=== PATIENT | female | born 2000 | race Caucasian/White ===

== ENCOUNTER 2022-05-10 14:26 | Outpatient (CLI) | payer OTHER, SELFPAY ==
[2022-05-10 15:58] LABS: Basophils Absolute Auto 0.04 K/uL (0.00-0.30); Basophils Percent Auto 0.6 % (0.0-3.0); Eosinophils Absolute Auto 0.07 K/uL (0.00-0.50); Eosinophils Percent Auto 1.1 % (0.0-7.0); Hematocrit 39.3 % (33.0-51.0); Hemoglobin* 13.4 gm/dL (12.0-16.0); Lymphocytes Absolute Auto 1.98 K/uL (0.90-2.90); Lymphocytes Percent Auto 29.9 % (20-44); Mean Corpuscular HGB Conc 34 gm/dL (32-36); Mean Corpuscular Hemoglobin 27 pg (26-34); Mean Corpuscular Volume 80 fL (80-100); Monocytes Percent Auto 7.4 % (0.0-11.0); Neutrophils Absolute Auto 4.04 K/uL (1.7-7.0); Platelet Count* 300 K/uL (140-440); RDW Coefficient of Variation % 12.2 % (11.5-15.5); Red Blood Count 4.93 m/uL (4.00-5.20); White Blood Count* 6.62 K/uL (4.50-11.00)
[2022-05-10 16:01] LABS: Appearance Urine Clear (Clear); Bilirubin Urine Negative (Negative); Blood Urine 3+ (Negative); Color Urine Yellow (Yellow); Glucose Urine Negative (Negative); Ketones Urine Trace (Negative); Leukocyte Esterase Urine Negative (Negative); Nitrite Urine Negative (Negative); Protein Urine 2+ (Negative); Specific Gravity Urine 1.025 (1.000-1.030); Urobilinogen Urine 0.2 (0.2-1.0); pH Urine 6.5 (5.0-8.5)
[2022-05-10 16:21] LABS: Chloride* 105 mmol/L (96-114)
[2022-05-10 16:22] LABS: Albumin* 4.8 g/dL (3.3-5.0); Slide Review Reflex No; Sodium* 141 mmol/L (135-149)
[2022-05-10 16:23] LABS: Potassium* 3.8 mmol/L (3.6-5.1)
[2022-05-10 16:25] LABS: Alanine Aminotransferase* 19 U/L (4-35); Alkaline Phosphatase* 88 U/L (40-150); Aspartate Amino Transferase* 28 U/L (12-35); Bilirubin Total* 0.4 mg/dL (0.1-1.5); Blood Urea Nitrogen* 17 mg/dL (5-24); Carbon Dioxide* 23 mmol/L (20-32); Cholesterol* 254 mg/dL (90-199); Creatinine* 0.6 mg/dL (0.5-1.5); Estimated Glomerular Filt Rate 131 ml/min; Glucose* 116 mg/dL (60-115); Triglycerides* 249 mg/dL (40-149)
[2022-05-10 16:26] LABS: Calcium* 9.7 mg/dL (8.4-10.6); HDL Cholesterol* 53 mg/dL (>=50); LDL Cholesterol Calculated 151 mg/dL (<100)
[2022-05-10 16:27] LABS: Creatinine Urine 143.3 mg/dL
[2022-05-10 16:53] LABS: Microalbumin Creatinine Ratio 150 mg/g (0-30); Microalbumin Urine 22 mg/dL
[2022-05-10 18:47] LABS: Bacteria Urine Few; Squamous Epithelial Cell Urine Few (None-Few); WBC Urine 0-2 (0-5)
== END 2022-05-10 14:27 | disposition home or self-care (01) ==
PROVIDERS: Visit Provider Pediatrics Pediatric Nephrology
DX: Q85.1 Tuberous sclerosis (principal); N18.1 Chronic kidney disease, stage 1; Q61.02 Congenital multiple renal cysts
CPT/HCPCS: 36415; 80053; 80061; 81001; 82043; 82570; 85025; 87086

== ENCOUNTER 2022-05-21 05:14 | Emergency (ER) | payer OTHER, SELFPAY ==
[2022-05-21] VITALS (13 sets, daily range): BP systolic 84–145; BP diastolic 40–84; PULSE 39–90; RESP 14–18; TEMP 36.6; O2SAT 92–100; BMI 22.6
[2022-05-21 05:32] LABS: Appearance Urine Clear (Clear); Bilirubin Urine Negative (Negative); Blood Urine Negative (Negative); Color Urine Yellow (Yellow); Glucose Urine Negative (Negative); Ketones Urine Negative (Negative); Leukocyte Esterase Urine Negative (Negative); Nitrite Urine Negative (Negative); Protein Urine Negative (Negative); Specific Gravity Urine <= 1.005 (1.000-1.030); Urobilinogen Urine 0.2 (0.2-1.0); pH Urine 6.5 (5.0-8.5)
[2022-05-21 05:40] LABS: Bacteria Urine Moderate; RBC Urine 0-2 (0-2); Squamous Epithelial Cell Urine Few (None-Few); WBC Urine 0-2 (0-5)
[2022-05-21 05:41] LABS: HCG Qualitative* Negative (Negative)
--- NOTE | 2022-05-21 05:52 | CRLHL7_ITS ---
For Patients: As a result of the 21st Century Cures Act, medical imaging exams and procedure reports are released immediately into your electronic medical record. You may view this report before your referring provider. If you have questions, please contact your health care provider. INDICATION: Left-sided abdominal pain. History of tuberous sclerosis. TECHNIQUE: Axial images were obtained from the diaphragm to the pubic symphysis. Reformats were obtained in the coronal and sagittal plane. IV Contrast: None Oral Contrast: None COMPARISON: None. FINDINGS: Lower chest: Calcified granulomata within the lingula. Liver: Punctate calcification within liver consistent prior granulomatous disease. Subcentimeter fat density within the right lobe of the liver, likely a hepatic angiomyolipoma in this setting. Other subcentimeter hypodense lesions which are too small for characterization. Gallbladder and bile ducts: Unremarkable. No stones or inflammation. No biliary dilatation. Spleen: Numerous calcifications consistent with prior granulomatous disease. Pancreas: Unremarkable. No mass or inflammation. Adrenal glands: Unremarkable. No nodules. Kidneys: Kidneys are enlarged with numerous low-density, high density as well as fat density lesions. Largest angiomyolipoma on the left measures 4.0 centimeters. No hydronephrosis. Vasculature: Unremarkable. GI tract: No dilated loops of large or small intestine. Calcifications of the adalberto-hepatis, likely calcified lymph nodes. There are some mildly prominent vessels with faint fascial thickening along the left flank (series 2, image 51; series 4, image 19). Pelvis: Trace free fluid deep pelvis. Bones: Small sclerotic foci within the lumbar spine and pelvis. IMPRESSION: 1. Bilateral renal enlargement with numerous angiomyolipomas, largest measuring 4.0 centimeters. Multiple renal cysts as well as subcentimeter hyperdense renal lesions which can represent proteinaceous cysts or small solid lesions. No hydronephrosis. 2. Prominent vessels along the left flank with some faint fascial thickening. Subjectively this is likely physiologic for this patient although minimal mesenteritis is possible. 3. Numerous sclerotic lesions throughout the lumbar spine and pelvis, likely multiple bone islands. 4. Fat-density hepatic lesion consistent with an angiomyolipoma. 5. Old granulomatous disease. Please note that all CT scans at this facility use dose modulation, iterative reconstruction, and/or weight-based dosing when appropriate to reduce radiation dose to as low as reasonably achievable. Dictated by Chao Jones MD @ 05/21/2022 7:15:33 AM (Electronically Signed)
--- NOTE | 2022-05-21 06:05 | ED.NURSE ---
pt vasovagal post IV start, Trendelenburg position and pt responded back, pt states she faints during iv starts frequently, pt MD Gentile updated.
[2022-05-21 06:15] LABS: Basophils Percent Auto 0.5 % (0.0-3.0); Eosinophils Percent Auto 2.2 % (0.0-7.0); Hematocrit 40.3 % (33.0-51.0); Hemoglobin* 13.6 gm/dL (12.0-16.0); Immature Granulocytes Abs Auto 0.05 K/uL (0.00-0.30); Lymphocytes Percent Auto 21.4 % (20-44); Mean Corpuscular HGB Conc 34 gm/dL (32-36); Mean Corpuscular Hemoglobin 27 pg (26-34); Mean Corpuscular Volume 80 fL (80-100); Monocytes Percent Auto 6.4 % (0.0-11.0); Neutrophils Percent Auto 69.1 % (42.0-72.0); Platelet Count* 358 K/uL (140-440); RDW Coefficient of Variation % 12.4 % (11.5-15.5); Red Blood Count 5.01 m/uL (4.00-5.20); White Blood Count* 11.49 K/uL (4.50-11.00)
[2022-05-21 06:19] LABS: Albumin* 4.9 g/dL (3.3-5.0); Chloride* 106 mmol/L (96-114); Slide Review Reflex No
[2022-05-21 06:20] LABS: Potassium* 3.9 mmol/L (3.6-5.1); Sodium* 140 mmol/L (135-149)
[2022-05-21 06:22] LABS: Alkaline Phosphatase* 90 U/L (40-150); Amylase* 76 U/L (18-89); Aspartate Amino Transferase* 36 U/L (12-35); Bilirubin Total* 0.4 mg/dL (0.1-1.5); Blood Urea Nitrogen* 11 mg/dL (5-24); Carbon Dioxide* 25 mmol/L (20-32); Creatinine* 0.6 mg/dL (0.5-1.5); Est. Creatinine Clearance* 138.85; Estimated Glomerular Filt Rate 131 ml/min; Glucose* 101 mg/dL (60-115); Total Protein* 8.5 g/dL (6.0-8.3)
[2022-05-21 06:23] LABS: Alanine Aminotransferase* 28 U/L (4-35); Calcium* 10.1 mg/dL (8.4-10.6); Lipase* 56 U/L (23-300)
--- NOTE | 2022-05-21 06:24 | ED.NURSE ---
pt. blood pressure was 88/40. heart rate 54. pt. with no c/o, except she wanted her iv out.
--- NOTE | 2022-05-21 06:43 | ED_ITS ---
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 No reflux symptoms no fever or chills. No dysuria. No nausea or vomiting. The pain seems to extend into her back. She has a number of kidney cysts related to her tuberous sclerosis and has had abd pain as a symptom in the past. No other symptoms. Pt has been eating and drinking normally. Pain is moderate and sharp. Pt is not sexually active. Related Data Home Medications Medication Instructions Recorded Confirmed everolimus (antineoplastic) 5 mg 5 mg PO DAILY 05/21/22 05/21/22 tablet Previous Rx's Medication Instructions Recorded ciprofloxacin HCl 250 mg tablet 250 mg PO Q12H #10 tabs 05/21/22 (Cipro) Allergies Allergy/AdvReac Type Severity Reaction Status Date / Time NSAIDS (Non-Steroidal Allergy Intermediate h/o Verified 05/21/22 06:13 Anti-Inflamma Tuberous Sclerosis Iodinated Contrast Media AdvReac Severe Tuberous Verified 05/21/22 06:13 Sclerosis Review of Systems Status of ROS Reports: 10 or more systems reviewed and unremarkable except as noted in History and below [facility] Medical History (Updated 05/21/22 @ 07:27 by Guillermo Gentile MD) Tuberous sclerosis Surgical History No significant past surgical history Social History Smoking Status: Never smoker Do you use any of these nicotine containing products: None Second hand tobacco smoke exposure: No How often do you have a drink containing alcohol: never How often do you have six or more drinks on one occasion: Never AUDIT-C Alcohol total score: 0 Non-prescribed substance use: denies use Exam Narrative: Exam Narrative: EXAM GENERAL: Patient appears comfortable and well. EYES: No scleral icterus. THYROID: no thyroid nodules or thyromegaly. LYMPH: No supraclavicular or cervical lymphadenopathy. SKIN: Visible skin seen during exam normal or with benign process only. EXT: No dependent lower extremity pedal edema. HEART: Regular rate and rhythm with no murmurs, rubs, or gallops. LUNGS: Clear to auscultation bilaterally with no crackles or wheezes. ABD: Soft, non tender, non distended. PSYCH: Good eye contact, speech is not pressured. Const: Vital Signs, click to edit/add: Vital Signs - 24 hr 05/21/22 05:27 05/21/22 06:00 05/21/22 06:04 Temperature 97.9 F Pulse Rate Pulse Rate [Right Pulse Oximeter] 90 39 L Respiratory Rate 18 14 Blood Pressure Blood Pressure [Ri ght Upper Arm] 145/84 H 88/50 L Pulse Oximetry 99 98 92 Oxygen Delivery Me thod Room Air Room Air 05/21/22 06:09 05/21/22 06:11 05/21/22 06:15 Temperature Pulse Rate 58 L 69 Pulse Rate [Right Pulse Oximeter] 61 Respiratory Rate 14 Blood Pressure 115/74 Blood Pressure [Ri ght Upper Arm] 115/74 Pulse Oximetry 99 99 100 Oxygen Delivery Me thod Room Air 05/21/22 06:17 05/21/22 06:20 05/21/22 06:22 Temperature Pulse Rate 77 56 L 56 L Pulse Rate [Right Pulse Oximeter] Respiratory Rate Blood Pressure 116/52 L 84/40 L Blood Pressure [Ri ght Upper Arm] Pulse Oximetry 98 100 99 Oxygen Delivery Me thod 05/21/22 06:34 05/21/22 07:02 Temperature Pulse Rate 71 79 Pulse Rate [Right Pulse Oximeter] Respiratory Rate Blood Pressure 120/65 112/69 Blood Pressure [Ri ght Upper Arm] Pulse Oximetry 100 100 Oxygen Delivery Me thod Course Course Hospital Course: CBC, CMP, Lipase, Amylase, Ua, urine preg, CT of abd and pelvis ordered. Reevaluation(s) Reevaluation #1: Pt became hypotensive and bradycardic when IV was being placed. Pt given 500 Normal Saline bolus and now feels better. Time: 06:55 Vital Signs Vital signs: Initial Vital Signs Temperature 97.9 F 05/21/22 05:27 Temperature Source Temporal Artery Scan 05/21/22 05:27 Pulse Rate 90 05/21/22 05:27 Respiratory Rate 18 05/21/22 05:27 Blood Pressure 145/84 H 05/21/22 05:27 Blood Pressure Mean 104 05/21/22 05:27 Blood Pressure Position Sitting 05/21/22 05:27 Pulse Oximetry 99 05/21/22 05:27 Oxygen Delivery Method 05/21/22 05:27 Vital Signs Temperature 97.9 F 05/21/22 05:27 Pulse Rate 90 05/21/22 05:27 Respiratory Rate 18 05/21/22 05:27 Blood Pressure 145/84 H 05/21/22 05:27 Pulse Oximetry 99 05/21/22 05:27 Oxygen Delivery Method 05/21/22 05:27 Temperature 97.9 F 05/21/22 05:27 Pulse Rate 79 05/21/22 07:02 Respiratory Rate 14 05/21/22 06:09 Blood Pressure 112/69 05/21/22 07:02 Pulse Oximetry 100 05/21/22 07:02 Oxygen Delivery Method 05/21/22 06:09 MDM - Abdominal Pain MDM Narrative Medical decision making narrative: Pt is a 21 year old with tuberous sclerosis who presents with abd pain. Workup shows chronic findings of tuberous sclerosis on CT. Lab shows moderate bacteria on ua. No other findings. Pt had a syncopal event with the IV start with normalization after 500 cc of normal saline. We did discuss treatment of her urine bacteria given her complex urinary anatomy. Pt is agreable to antibiotic being sent in but she will discuss with her Supervisor [employer] before starting. Differential Diagnosis Differential diagnosis: Likely abdominal pain, acute appendicitis, calculus of kidney, constipation, diverticulitis, endometriosis, gastroenteritis, pancreatitis and small bowel obstruction Lab Data Labs: Lab Results 05/21/22 05/21/22 05/21/22 Range/Units 05:25 06:00 06:00 WBC 11.49 H (4.50-11.00) K/uL RBC 5.01 (4.00-5.20) m/uL Hgb 13.6 (12.0-16.0) gm/dL Hct 40.3 (33.0-51.0) % MCV 80 (80-100) fL MCH 27 (26-34) pg MCHC 34 (32-36) gm/dL RDW Coeff of [place] 12.4 (11.5-15.5) % Plt Count 358 (140-440) K/uL Neut % (Auto) 69.1 (42.0-72.0) % Lymph % (Auto) 21.4 (20-44) % [place] % (Auto) 6.4 (0.0-11.0) % Eos % (Auto) 2.2 (0.0-7.0) % Baso % (Auto) 0.5 (0.0-3.0) % Neut # (Auto) 7.90 H (1.7-7.0) K/uL Lymph # (Auto) 2.50 (0.90-2.90) K/uL [place] # (Auto) 0.70 (0.00-0.90) K/UL Eos # (Auto) 0.30 (0.00-0.50) K/uL Baso # (Auto) 0.10 (0.00-0.30) K/uL Abs Immat Gran (auto) 0.05 (0.00-0.30) K/uL Sodium 140 (135-149) mmol/L Potassium 3.9 (3.6-5.1) mmol/L Chloride 106 (96-114) mmol/L Carbon Dioxide 25 (20-32) mmol/L BUN 11 (5-24) mg/dL Creatinine 0.6 (0.5-1.5) mg/dL Estimated Creat Clear 138.85 Estimated GFR 131 ml/min Glucose 101 (60-115) mg/dL Calcium 10.1 (8.4-10.6) mg/dL Total Bilirubin 0.4 (0.1-1.5) mg/dL AST 36 H (12-35) U/L ALT 28 (4-35) U/L Alkaline Phosphatase 90 (40-150) U/L Total Protein 8.5 H (6.0-8.3) g/dL Albumin 4.9 (3.3-5.0) g/dL Amylase 76 (18-89) U/L Lipase 56 (23-300) U/L HCG, Qual Negative (Negative) Urine Color Yellow (Yellow) Urine Appearance Clear (Clear) Urine pH 6.5 (5.0-8.5) Ur Specific [place] <= 1.005 (1.000-1.030) Urine Protein Negative (Negative) Urine Glucose (UA) Negative (Negative) Urine Ketones Negative (Negative) Urine Blood Negative (Negative) Urine Nitrite Negative (Negative) Urine Bilirubin Negative (Negative) Urine Urobilinogen 0.2 (0.2-1.0) Ur Leukocyte Esterase Negative (Negative) Urine RBC 0-2 (0-2) Urine WBC 0-2 (0-5) Ur Squamous Epith Cells Few (None-Few) Urine Bacteria Moderate A (None) Discharge Plan Discharge Clinical Impression: Urinary tract infection Condition: Stable Instructions: Urinary Tract Infection in Women (DC) Additional Instructions: Contact your Supervisor [employer] to discuss treatment Activity Level: No Restrictions Discharge Diet: Regular Prescriptions: New ciprofloxacin HCl [Cipro] 250 mg tablet 250 mg PO Q12H Qty: 10 0RF No Action everolimus (antineoplastic) 5 mg tablet 5 mg PO DAILY Follow Up/Referrals: Provider,Not a Local [Primary Care Provider] - Stand Alone Forms: MyHealth Info Instructions
== END 2022-05-21 07:34 | disposition home or self-care (01) ==
PROVIDERS: Emergency Provider Internal Medicine
DX: N39.0 Urinary tract infection, site not specified (principal)
CPT/HCPCS: 36415; 74176; 80053; 81001; 82150; 83690; 84703; 85025; 87086; 94761; 99283; 99284

== ENCOUNTER 2023-03-14 11:30 | Outpatient (CLI) | payer OTHER, SELFPAY ==
[2023-03-14 13:10] LABS: Ferritin* 60.4 ng/mL (6.24-137.0)
== END 2023-03-14 11:31 | disposition home or self-care (01) ==
PROVIDERS: Visit Provider Pediatrics Pediatric Nephrology
DX: N20.0 Calculus of kidney (principal)
CPT/HCPCS: 36415; 82728